=== PATIENT | female | born 1940 | race Caucasian/White ===

== ENCOUNTER 2018-07-27 15:42 | Emergency (ER) | payer OTHER ==
[~2018-07-27] VITALS: Ht 167.6 cm; Wt 110.2 kg
[2018-07-27] MEDS ORDERED: ADULT ASPIRIN81 MG (16:13)
[2018-07-27] MEDS ORDERED: PNEU16DI2 (16:13)
== END 2018-07-27 17:58 | disposition home or self-care (01) ==
LOC: ER 15:42
DX: R53.1 Weakness (principal)